=== PATIENT | male | born 1980 | race Caucasian/White ===

== ENCOUNTER 2016-11-11 16:23 | Emergency (ER) | payer BC ==
[~2016-11-11] VITALS: Ht 172.7 cm; Wt 109.0 kg
[2016-11-11 16:28] VITALS: BP 147/80; PULSE 107; RESP 16; TEMP 98.4; O2SAT 96
--- NOTE | 2016-11-11 16:56 | PD ---
HPI Chief Complaint: Allergic/Adverse Reaction Time Seen by Provider: 16:51 Travel History International Travel<30 days: No Contact w/Intl Traveler<30days: No Traveled to known affect area: No History of Present Illness HPI 36-year-old male presents to the emergency room for evaluation of full body hives that started at 3:00 PM after being bitten by 2 small ants. Patient was bit by an ant on his left ankle and left third finger. The ant bites burned. States shortly afterward he developed extremely itchy hives throughout his body. He denies any history of allergic reaction to antibiotic in the past. Denies any other recent exposures. His gave him 2 [id number] Benadryl and brought him to the emergency room. Patient reports with sensation of dry throat but denies shortness of breath or chest pain at this time. No chronic medical conditions or daily medications. PFSH Past Medical History Medical History: Denies Significant Hx Diminished Hearing: No Tetanus Vaccination: Unknown Influenza Vaccination: No ?: Not Past Surgical History Surgical History: No Previous Surgery Social History Alcohol Use: No Tobacco Use: No Substance Use: No Allergies-Medications (Allergen,Severity, Reaction): Coded Allergies: No Known Allergies (Unverified , 11/11/16) Reported Meds & Prescriptions Reported Meds & Active Scripts Active Ranitidine (Ranitidine HCl) 150 Mg Tab 150 Mg PO DAILY Prednisone 20 Mg Tab 40 Mg PO DAILY Take 40 mg (2 tablets) daily for 5 days Epipen 2-Bg Inj (Epinephrine) 0.3 Mg/0.3 Ml Pfpen 0.3 Mg IM ONCE PRN Review of Systems Except as stated in HPI: all other systems reviewed are Neg Physical Exam Narrative GENERAL: Well-nourished, well-developed male in no acute distress. Afebrile. Ambulatory. SKIN: Focused skin assessment warm/dry. There are multiple large erythematous, maculopapular plaques throughout the body measuring as large as 6 cm in diameter. HEAD: Normocephalic. EYES: No scleral icterus. No injection or drainage. NECK: Supple, trachea midline. No JVD or lymphadenopathy. ENT: Mucosa pink and moist. No erythema or exudates. No uvular edema. No uvular , palatal, or tonsillar deviation. Tonsils are 2+ and equal. Airway patent. Nasal turbinates appear normal without nasal blood, purulent drainage or septal hematoma. CARDIOVASCULAR: Regular rate and rhythm without murmurs, gallops, or rubs. RESPIRATORY: Breath sounds equal bilaterally. No accessory muscle use. No crackles, rales, wheezes, or rhonchi. Data Data Last Documented VS Vital Signs Date Time Temp Pulse Resp B/P Pulse Ox O2 Delivery O2 Flow Rate FiO2 11/11/16 16:28 98.4 107 16 147/80 96 Room Air Orders Dexamethasone Inj (Decadron Inj) (11/11/16 17:00) Famotidine (Pepcid) (11/11/16 17:00) Epinephrine (1:1000) Inj (Adrenalin (1:1 (11/11/16 17:15) MDM Medical Decision Making Medical Screen Exam Complete: Yes Emergency Medical Condition: Yes Medical Record Reviewed: Yes Differential Diagnosis Allergic reaction, urticaria, anaphylaxis Narrative Course 36 year-old male presents to the emergency room for evaluation of itchy rash to his body that started after being bit by an ant on his leg and finger just prior to arrival. He has associated sore throat but denies chest pain, shortness of breath, or difficulty breathing. Physical exam reveals large urticarial plaques throughout the body is negative except centimeters in diameter. Tonsils are 2+ and equal. Lungs sounds clear and equal bilaterally. Vital signs stable. Patient took 50 g been adjusted prior to arrival. He was given famotidine, Decadron, and epinephrine injection in the emergency room. Patient reports significant relief in symptoms. He was monitored after receiving epinephrine and did well. Patient is stable for discharge. He will be discharged with prescriptions for Zantac, prednisone, and EpiPen. Patient told to follow-up with primary care physician or return for worsening symptoms. He understands and agrees to plan. Diagnosis Primary Impression: Allergic reaction to insect sting Qualified Code: T63.481A - Allergic reaction to insect sting, accidental or unintentional, initial encounter Referrals: Primary Care Physician Patient Instructions: Epinephrine (By injection), General Allergic Reaction (ED ), General Instructions Additional Instructions: Rest and drink plenty of fluids. Take prednisone as directed, until gone. Take Zantac and Benadryl together for the next 3 days. Use EpiPen as directed, as needed for anaphylactic reaction. Use this medication after allergic reaction if your throat starts to swell, your chest is tight, or face begins to swell, or for any other anaphylactic symptoms. Follow up with a primary care physician. Return to emergency room for worsening symptoms, as discussed. Med/Other Pt SpecificInfo: Prescription(s) given Scripts Ranitidine 150 Mg Nan721 Mg PO DAILY #14 TAB Ref 0 Prov:Eron Alexander MD 11/11/16 Prednisone 20 Mg Tab40 Mg PO DAILY #10 TAB Ref 0 Take 40 mg (2 tablets) daily for 5 days Prov:Eron Alexander MD 11/11/16 Epinephrine Inj (Epipen 2-Bg Inj)0.3 Mg/0.3 Ml Pfpen0.3 Mg IM ONCE PRN ( ALLERGIC REACTION) #1 PACK Ref 0 Prov:Eron Alexander MD 11/11/16 Disposition: 01 DISCHARGE HOME Condition: Stable Dunia Fernandez Nov 11, 2016 16:56
[2016-11-11] MEDS ORDERED: FAMOTIDINE 20 MG TAB PO ONE (17:00)
[2016-11-11] MEDS ORDERED: DEXAMETHASONE SOD PHOS 20 MG/5 ML VIAL IM ONE (17:00)
[2016-11-11] MEDS ORDERED: EPINEPHrine HCL (1:1000) 1 MG/ML VIAL IM ONE (17:15)
[2016-11-11] MEDS ORDERED: PRED20 PO (17:24)
[2016-11-11] MEDS ORDERED: EPIP0.3I IM (17:24)
[2016-11-11] MEDS ORDERED: RANI150T PO (17:24)
[2016-11-11 18:12] VITALS: BP 157/75
== END 2016-11-11 18:14 | disposition home or self-care (01) ==
LOC: PHEFT 16:23
DX: T63.481A Toxic effect of venom of other arthropod, accidental (unintentional), initial encounter (principal); L50.9 Urticaria, unspecified; R07.0 Pain in throat
CPT/HCPCS: 96372; 99284; J0171; J1100